=== PATIENT | male | born 1970 | race Caucasian/White ===

== ENCOUNTER 2017-03-20 10:30 | Emergency (ER) | payer SELFPAY ==
--- NOTE | ~2017-03-20 | ER ---
PATIENT'S NAME: RACHEL SCHAFER [facility] [place] AGE: 46 Y [address] ROOM: [place] [address] LOCATION: ED ADMIT DATE: 03/20/2017 ER/Outpatient Report DISCHARGE DATE: 03/20/2017 FAMILY PHYSICIAN: PHYSICIAN, SANDI ATTENDING PHYSICIAN: Tati Leblanc Time of Arrival: 1030 hours. Time Seen: 1046 hours. IDENTIFICATION: A 46-year-old male. CHIEF COMPLAINT: Right groin pain. HISTORY OF PRESENT ILLNESS: The patient has had right groin pain for 3 weeks. No nausea or vomiting. No injury. No fever or chills. No constipation or diarrhea. He has some pain with urination. He had epididymitis one year ago. PAST MEDICAL HISTORY: ALLERGIES: NO KNOWN DRUG ALLERGIES. CURRENT MEDICATIONS: 1. Losartan 100 mg daily. 2. Ibuprofen p.r.n. pain. MEDICAL PROBLEMS: Epididymitis one year ago and hypertension. PRIOR SURGERIES: Bilateral knee arthroscopy and lower back surgery. SOCIAL HISTORY: The patient lives here in [place]. He has a significant other. Tobacco use, half pack per day for 20 years. Alcohol use, denies. Drug use, denies. He has no primary care physician at this time. FAMILY HISTORY: No pertinent family history. REVIEW OF SYSTEMS: All systems reviewed and negative other than what is noted in the HPI. PATIENT'S NAME: RACHEL SCHAFER [facility] [place] AGE: 46 Y [address] ROOM: [place] [address] LOCATION: [facility] ADMIT DATE: 03/20/2017 ER/Outpatient Report DISCHARGE DATE: 03/20/2017 FAMILY PHYSICIAN: PHYSICIAN, SANDI ATTENDING PHYSICIAN: Tati Leblanc PHYSICAL EXAMINATION: VITAL SIGNS: Height 5 feet 9 inches, weight 80.9 kilograms. Blood pressure 151/98, pulse 82, respirations 20, temperature 97.1, sats 97% on room air. GENERAL: A 46-year-old male in obvious distress, 10/10 pain. HEENT: Head; normocephalic, atraumatic. Ears; TMs translucent, both ears. Nose; mucosa pink, no lesions. Mouth, no lesions. Pharynx benign. NECK: Supple. No lymphadenopathy. LUNGS: Clear to auscultation. HEART: Regular rate and rhythm. ABDOMEN: Soft, nondistended, nontender. SKIN: [place], warm, and dry. No lesions or rashes noted. NEURO: No focal deficit. : Testes descended bilaterally. The patient has pain in his right scrotum, very sensitive to even minimal touch. No palpable deformities. No evidence of hernia. He has some right inguinal lymphadenopathy that also was tender. No urethral discharge. EMERGENCY DEPARTMENT COURSE: The patient was given 50 mcg of fentanyl with improvement of his symptoms, but they did return, so he was given another 25 mcg of fentanyl and his pain improved to 1. LABORATORY DATA AND X-RAYS: Sodium 144, potassium 4.3, chloride 107, CO2 of 29, BUN 13, creatinine 1.1, blood sugar 106. Liver enzymes normal. Hemoglobin 14.7, hematocrit 43, platelets 244, white count 6.8 with a normal differential. Scrotal ultrasound, no acute findings, no clear explanation for pain. He has a nonspecific right inguinal lymph node 15 x 8 mm, no evidence of hernia. IMPRESSION AND PLAN: 1. Right inguinal pain with lymphadenopathy. Plan: Bactrim DS b.i.d. for 7 days empirically, [place]. We did check a urinalysis here which was unremarkable. [place] 5/325 one to two p.o. q.4 to 6 hours p.r.n. severe pain, dispensed 15 with 0 refills. Tylenol or Advil for [id number]-[id number] pain. Scrotal support. Follow up with [facility] in 1 to 2 days. 2. Hypertension. The patient has been out of his losartan and requested a refill 100 mg daily, #30, but I advised that he has to follow up with primary care physician for further refills. The patient and his significant other understands and all questions have been answered. PATIENT'S NAME: RACHEL SCHAFER [facility] [place] AGE: 46 Y [address] ROOM: [place] [address] LOCATION: ED ADMIT DATE: 03/20/2017 ER/Outpatient Report DISCHARGE DATE: 03/20/2017 FAMILY PHYSICIAN: PHYSICIAN, NO ATTENDING PHYSICIAN: Tati Leblanc MD CAR/modl /[id number] d: 03/20/17 2320 t: 03/27/17 1926, OUTPATIENT REPORT
[2017-03-20 11:13] LABS: BASOPHIL % 0.4 %; EOSINOPHIL # 0.1 K/uL (0.0-0.5); EOSINOPHIL % 1.6 %; HEMOGLOBIN 14.7 g/dL (12.0-17.0); IMMATURE GRANULOCYTE % 0.1 %; LYMPHOCYTE # 1.6 K/uL (0.8-4.0); MCH 32.6 pg (27.0-34.0); MCHC 34.2 gm/dL (32.0-36.5); MCV 95.3 fl (83.0-98.0); MONOCYTE # 0.5 K/uL (0.0-1.0); MONOCYTE % 6.9 %; MPV 8.9 fl (9.4-12.4); NEUTROPHIL # (ANC) 4.5 K/uL (1.4-9.0); NRBC % 0 /100WBC (0-0.00); PLATELET COUNT 244 K/uL (150-450); RBC 4.51 M/uL (4.00-6.00); RDW-CV 12.8 % (11.9-14.6); WBC 6.8 K/uL (4.0-11.0)
[2017-03-20 11:32] LABS: ALBUMIN 3.3 gm/dL (3.5-5.0); ALK PHOS 92 IU/L (33-138); ALT 45 IU/L (12-78); BLOOD UREA NITROGEN 13 mg/dL (6-24); CALCIUM 8.5 mg/dL (8.5-10.5); CHLORIDE 107 mMol/L (96-110); CO2 29 mMol/L (22-32); CREATININE 1.1 mg/dL (0.6-1.3); ESTIMATED GFR (MDRD EQUATION) > 60; SODIUM 144 mMol/L (135-145); TOTAL BILIRUBIN 0.4 mg/dL (0.0-1.5); TOTAL PROTEIN 6.7 g/dL (6.0-8.4)
[2017-03-20 11:33] LABS: ANION GAP 12.3 (10.0-19.0); AST 29 IU/L (10-40)
[2017-03-20 11:34] LABS: POTASSIUM 4.3 mMol/L (3.7-5.1)
[2017-03-20 12:30] LABS: BILIRUBIN URINE NEGATIVE (NEGATIVE); BLOOD URINE NEGATIVE /UL (NEGATIVE); COLOR URINE YELLOW (YELLOW); GLUCOSE URINE NEGATIVE (NEGATIVE); KETONE URINE NEGATIVE (NEGATIVE); LEUKOCYTES URINE NEGATIVE /UL (NEGATIVE); NITRITE URINE NEGATIVE (NEGATIVE); PH URINE 6.5 (4.0-8.0); PROTEIN URINE NEGATIVE (NEGATIVE); SPEC GRAVITY URINE 1.015 (1.003-1.035); TURBIDITY URINE CLEAR (CLEAR); UROBILINOGEN URINE 1 mg/dL (NORMAL)
== END 2017-03-20 12:58 | disposition disaster alternative care site (69) ==
LOC: GMED 10:30
PROVIDERS: Family Medicine
DX: R59.0 Localized enlarged lymph nodes (principal); I10 Essential (primary) hypertension; F17.210 Nicotine dependence, cigarettes, uncomplicated; Z79.899 Other long term (current) drug therapy; Z98.890 Other specified postprocedural states
CPT/HCPCS: J3010

== ENCOUNTER 2017-04-14 12:41 | Emergency (ER) | payer SELFPAY ==
--- NOTE | ~2017-04-14 | ER ---
PATIENT'S NAME: RACHEL SCHAFER [facility] AGE: 47 Y [address] ROOM: [place], [place] [address] LOCATION: ED ADMIT DATE: 04/14/2017 ER/Outpatient Report DISCHARGE DATE: 04/14/2017 FAMILY PHYSICIAN: PHYSICIAN, NO ATTENDING PHYSICIAN: Tati Leblanc Time of Arrival: 1241 hours. Time of Evaluation: 1250 hours. CHIEF COMPLAINT: Flank pain. HISTORY OF PRESENT ILLNESS: This is a 46-year-old male, who presents to the ER. He states he has had a 3- to 4-day history of some low back pain. He states it is more in his flank areas. He states it does hurt him bilaterally. He is having quite a bit more pain on the left side than the right. He thought he maybe had a little bit of pink in his urine last evening and feels like he has got pain and urgency with urination. He states he has had the same sexual partner for the past 2 years. He does have a history of hypertension and previous back injury, but this does not feel like it is a muscular back pain. He has not used anything for his pain. He states he has never had any pain like this before. ALLERGIES: NO KNOWN ALLERGIES. MEDICATIONS: Please see medication list in nurse's notes. PAST MEDICAL HISTORY: Hypertension. PAST SURGICAL HISTORY: Low back fusion and bilateral knee surgery. SOCIAL HISTORY: He does chew tobacco. Denies any smoking use. REVIEW OF SYSTEMS: All systems were reviewed and were negative with the exception of those discussed in the HPI. PHYSICAL EXAMINATION: VITAL SIGNS: Height 5 feet 10 inches stated, weight 80.1 kg taken, blood pressure is 121/102, pulse 98, respirations 18, temperature is 98 degrees PATIENT'S NAME: RACHEL SCHAFER [facility] AGE: 47 Y [address] ROOM: [place], [place] [address] LOCATION: ED ADMIT DATE: 04/14/2017 ER/Outpatient Report DISCHARGE DATE: 04/14/2017 FAMILY PHYSICIAN: PHYSICIAN, NO ATTENDING PHYSICIAN: Tati Leblanc tympanically, saturations 98% on room air. [place] Coma Score is 15. GENERAL: Alert, calm, well-developed, 46-year-old, in mild distress. HEENT: Head: Normocephalic. Eyes: Pupils are equal and reactive to light. He does display moist mucous membranes. LUNGS: Clear to auscultation bilaterally. No wheezes or crackles. HEART: Regular rate and rhythm. ABDOMEN: Soft, it is nontender. He has good bowel sounds throughout. MUSCULOSKELETAL: He does have bilateral CVA tenderness, left greater than right. He has no tenderness over the bony aspects of the cervical, thoracic, or lumbar spine. NEURO: Cranial nerves 2 through 12 grossly intact. Gait is steady without assistance. LABORATORY DATA AND X-RAYS: CBC: White count is 6.0, hemoglobin is 14.0, ANC is 3.8. CMS: Sodium is 3.4, glucose is 134. Liver enzymes, BUN, and creatinine were all normal. Urinalysis: Leukocytes negative, nitrites negative. UA micro: White blood cells 2 to 5, red blood cells negative, epithelial rare, bacteria moderate. CT scan per stone protocol was done. He has several tiny 1 mm stones in each kidney. No obstructing stones shown. No other abnormalities seen and reported by Radiology. Gonorrhea and chlamydia were both negative. IMPRESSION: Bilateral flank pain, left greater than right. ASSESSMENT AND PLAN: We did start an IV here in the emergency room and did give him some IV fluids along with 30 mg of Toradol and 4 mg of Zofran. We did give the patient Rocephin 250 mg IV, and then we will send him home with a prescription of doxycycline to use as directed. The patient did rest comfortably his entire stay. I will have him continue to push fluids, and I would like him to follow up with his primary care physician for followup care if he is not improving. The patient understands and agrees with care. MADELINE GUEVARA PA-C FOR MD AURA THOMAS/annabelle /[id number] d: t: 04/22/17 2243, OUTPATIENT REPORT
[2017-04-14 13:28] LABS: BASOPHIL % 0.5 %; EOSINOPHIL # 0.1 K/uL (0.0-0.5); EOSINOPHIL % 2.3 %; HEMATOCRIT 40.4 % (37.0-53.0); IMMATURE GRANULOCYTE % 0.2 %; LYMPHOCYTE # 1.5 K/uL (0.8-4.0); LYMPHOCYTE % 25.3 %; MCH 32.3 pg (27.0-34.0); MCHC 34.7 gm/dL (32.0-36.5); MCV 93.1 fl (83.0-98.0); MONOCYTE # 0.5 K/uL (0.0-1.0); MONOCYTE % 8.7 %; MPV 8.9 fl (9.4-12.4); NEUTROPHIL # (ANC) 3.8 K/uL (1.4-9.0); NRBC % 0 /100WBC (0-0.00); PLATELET COUNT 224 K/uL (150-450); RBC 4.34 M/uL (4.00-6.00); RDW-CV 12.4 % (11.9-14.6)
[2017-04-14 13:48] LABS: ALK PHOS 93 IU/L (33-138); ALT 32 IU/L (12-78); ANION GAP 10.4 (10.0-19.0); AST 27 IU/L (10-40); BLOOD UREA NITROGEN 12 mg/dL (6-24); CALCIUM 8.4 mg/dL (8.5-10.5); CHLORIDE 109 mMol/L (96-110); CO2 27 mMol/L (22-32); ESTIMATED GFR (MDRD EQUATION) > 60; POTASSIUM 3.4 mMol/L (3.7-5.1); SODIUM 143 mMol/L (135-145); TOTAL PROTEIN 6.8 g/dL (6.0-8.4)
[2017-04-14 13:49] LABS: TOTAL BILIRUBIN 0.5 mg/dL (0.0-1.5)
[2017-04-14 15:52] LABS: BILIRUBIN URINE NEGATIVE (NEGATIVE); BLOOD URINE NEGATIVE /UL (NEGATIVE); COLOR URINE YELLOW (YELLOW); GLUCOSE URINE NEGATIVE (NEGATIVE); KETONE URINE NEGATIVE (NEGATIVE); LEUKOCYTES URINE NEGATIVE /UL (NEGATIVE); NITRITE URINE NEGATIVE (NEGATIVE); PROTEIN URINE 15 mg/dL (NEGATIVE); SPEC GRAVITY URINE 1.015 (1.003-1.035); TURBIDITY URINE 1+ (CLEAR); UROBILINOGEN URINE 1 mg/dL (NORMAL)
[2017-04-14 16:05] LABS: RBC URINE NEGATIVE #/HPF (NEGATIVE)
[2017-04-14 16:06] LABS: AMORPHOUS URINE 2+ (NEGATIVE); BACTERIA URINE MODERATE (NEGATIVE); EPITHELIAL URINE RARE #/HPF (NEGATIVE); MUCUS URINE 2+ (NEGATIVE)
[2017-04-14 16:08] LABS: HYALINE CAST URINE 0-2 #/LPF (NEGATIVE)
[2017-04-14 16:49] LABS: AMPHETAMINE POSITIVE (NEGATIVE); BARBITURATE NEGATIVE (NEGATIVE); COCAINE NEGATIVE (NEGATIVE); OPIATES NEGATIVE (NEGATIVE)
== END 2017-04-14 16:36 | disposition disaster alternative care site (69) ==
LOC: GMED 12:41
PROVIDERS: Physician Assistant Medical
DX: N20.0 Calculus of kidney (principal); F17.220 Nicotine dependence, chewing tobacco, uncomplicated; I10 Essential (primary) hypertension; Z79.899 Other long term (current) drug therapy; Z98.890 Other specified postprocedural states
CPT/HCPCS: J0696; J1885; J2270; J2405; J7030